=== PATIENT | male | born 2005 | race African-American/Black ===

== ENCOUNTER 2025-01-21 16:39 | Emergency (ER) | payer SELFPAY ==
[2025-01-21 16:54] VITALS: BP 124/85; PULSE 16; RESP 16; TEMP 36.9; O2SAT 97
--- NOTE | 2025-01-21 17:03 | ED_ITS ---
HPI - Nausea/Vomiting/Diarrhea General Chief complaint: Nausea/Vomiting/Diarrhea Stated complaint: vomiting Time Seen by Provider: 01/21/25 17:03 Source: patient, RN notes reviewed and old records reviewed Mode of arrival: ambulatory Limitations: no limitations History of Present Illness HPI Narrative: 19-year-old male who presents to [facility] with complaints of vomiting yesterday and this morning. Patient reports that he ate sushi lobster roll 2 days ago and has had nausea with episodes of reported vomiting since. Patient reports no fevers, chills or sweats, denies any acute abdominal pain reports some crampy sensation in abdomen.Patient reports that he called off work today due to symptoms and needs work note. MD elicited complaint: nausea and vomiting Onset (ago): day(s) (day 2 of symptoms) Description of diarrhea: watery Associated nausea: Yes Associated abdominal pain: Yes Location of pain: epigastric and periumbilical Radiation: does not radiate Pain consistency: intermittent Severity: mild Quality: cramping Treatment prior to arrival: none Related Data Allergies Allergy/AdvReac Type Severity Reaction Status Date / Time No Known Allergies Allergy Verified 01/21/25 16:48 Review of Systems Review of Systems: CONSTITUTIONAL: Denies fever, chills, or sweats. EYES: Denies visual changes, redness, or discharge. ENT: Denies rhinorrhea, congestion, sore throat, or otalgia. CARDIOVASCULAR: Denies chest pain, palpitations, or edema. RESPIRATORY: Denies cough or dyspnea. GASTROINTESTINAL:states mild abdominal crampy sensation, positive nausea, vomiting, no diarrhea. GENITOURINARY: Denies dysuria or hematuria. SKIN: Denies rash or itching. MUSCULOSKELETAL: Denies back pain, joint pain, or myalgia. NEUROLOGIC: Denies headache, numbness, or weakness. PSYCHIATRIC: Denies anxiety or depression. All systems reviewed & are unremarkable except as noted in HPI and below PMFSH Past Medical History Medical History (Updated 01/22/25 @ 11:19 by Supriya Doran NP) No significant past medical history Surgical History Surgical History (Updated 01/22/25 @ 11:16 by Supriya Doran NP) No pertinent past surgical history Social History Social History (Updated 01/22/25 @ 11:15 by Supriya L. Espinoza, PAGE MAKEUP SYSTEM OPERATOR) Smoking status: Smoker, status unknown Alcohol intake: unknown Substance use: unknown Comments At time of signature, agree with nursing past medical, surgical, social and family history. There is no relevant family history pertinent to the presenting complaint Exam Narrative: GENERAL: Well-appearing, well-nourished, and in no acute distress. HEAD: Normocephalic, atraumatic. EYES: PERRLA and EOMI. ENT: Nares clear, no rhinorrhea or epistaxis. Mucous membranes moist. NECK: Supple.no lymphadenopathy CHEST: Clear to auscultation. No respiratory distress.SAO2 97% on room air HEART: Regular rate and rhythm. No murmur heard. Normal peripheral pulses. ABDOMEN: Soft, nontender to palpation no McBurney point tenderness, nondistended, normal active bowel sounds. episodes of nausea and vomiting for past 2 days. denies any acute pain has drank fluids today EXTREMITIES: Normal range of motion. No edema. SKIN: Warm, dry, no rash. NEURO: No focal deficits. Alert and oriented x3. Course Course Emergency Course: Patient is aware of diagnosis, understands and agrees to treatment plan.? Anticipatory guidance given.? Patient agrees to follow-up as directed and is aware of reasons to seek care at the emergency department. Portions of this record may have been created with voice recognition software Level of Care: Express Care Visit Vital Signs Vital signs: Vital Signs Temperature 36.9 C 01/21/25 16:54 Pulse Rate 16 L 01/21/25 16:54 Respiratory Rate 16 01/21/25 16:54 Blood Pressure 124/85 01/21/25 16:54 Pulse Oximetry 97 01/21/25 16:54 Temperature 36.9 C 01/21/25 16:54 Pulse Rate 16 L 01/21/25 16:54 Respiratory Rate 16 01/21/25 16:54 Blood Pressure 124/85 01/21/25 16:54 Pulse Oximetry 97 01/21/25 16:54 Reviewed MDM - Nausea/Vomiting/Diarrhea Differential Diagnosis Differential diagnosis: Likely food poisoning, gastroenteritis and other (nausea and vomiting) Medical Records Attestation: I reviewed the patient's medical records. Critical Care Time Critical Care Time Critical Care Time: No Discharge Plan Discharge Clinical Impression: Gastroenteritis Nausea and vomiting Qualifiers: Vomiting type: unspecified Qualified Code(s): R11.2 - Nausea with vomiting, unspecified Patient Disposition: Home Condition: Stable Instructions: Antibiotic Form, Gastroenteritis (ED) Additional Instructions: Clear liquids for the next 8-10 hours, then advance to a bland diet as tolerated A bland diet can consist of--BRAT diet which is bananas, rice, applesauce, and toast Avoid fried, greasy, fatty, fried foods Avoid caffeine, nicotine, and alcohol Return to your regular diet in the next 3-4 days Medication as directed for nausea and vomiting Sometimes ibuprofen/Aleve can cause increased stomach upset [id number] Imodium if develop diarrhea Follow-up with her PCP if continued problems or uncontrolled pain If your symptoms persist, change or worsen significantly before you can contact your personal physician then please, without delay, go to the emergency department for further evaluation. Follow-up with PCP in 7-10 days or sooner if needed Follow up with PCP soon in regards to your blood pressure which is elevated above threshold for referral. Blood pressure above 120/80 may indicate pre- hypertension. minimal diastolic elevation 124/85 Patient Language: Amharic Prescriptions: New ondansetron 4 mg tablet,disintegrating 4 mg PO Q6H PRN (Reason: nausea and vomiting) Qty: 14 0RF Rx Instructions: whatever preparation is most economical Follow-up/Referrals: PHYSICIAN,GROUP SUPERVISOR YARD [Primary Care Provider, Internal Medicine] Stand Alone Forms: Work/School Release IP Time of Disposition: 17:13 Quality Diego Coma Scale Eyes: Open Verbal: Oriented and Alert Motor: Follows Commands Diego Coma Total Score: 15
== END 2025-01-21 17:17 | disposition home or self-care (01) ==
PROVIDERS: Emergency Provider Registered Nurse
DX: K52.9 Noninfective gastroenteritis and colitis, unspecified (principal); R11.2 Nausea with vomiting, unspecified
CPT/HCPCS: 99203; G0463